=== PATIENT | female | born 1965 | race Caucasian/White ===

== ENCOUNTER 2019-06-18 17:09 | Emergency (ER) | payer SELFPAY ==
[~2019-06-18] VITALS: Ht 160 cm; Wt 60.7 kg
[2019-06-18] MEDS ORDERED: NS IV 1000 ML 1,000 ML IV SCH (17:19)
--- NOTE | 2019-06-18 17:24 | ED GU-Female ---
General Stated Complaint: BLOOD IN URINE Source: patient Exam Limitations: no limitations (PARMJIT LARA) History of Present Illness Date Seen by Provider: Jun 18, 2019 Time Seen by Provider: 17:10 Initial Comments Patient presents to ER by private conveyance with her spouse and chief complaint that about 3 hours ago she started experiencing hematuria, gross with a few clots in it. No pain dysuria. She does have pressure and the need to urinate. No back pain. A few weeks ago she was diagnosed at the urgent care and [place] with a kidney stone and they did not do any imaging since her pain went away she feared that she had passed it. She's having no pain or fevers nausea or vomiting today. She had a D&C years ago but no other abdominal surgeries. Does not have any medical problems or taking any medicines routinely. (PARMJIT LARA) Allergies and Home Medications Allergies Coded Allergies: No Known Drug Allergies (Unverified , 06/18/19) Home Medications Cefuroxime Axetil 500 Mg Tablet, 500 MG PO BID Prescribed by: NATASHA BADILLO on 06/18/191858 Phenazopyridine HCl 200 Mg Tablet, 1 TAB PO TID Prescribed by: NATASHA BADILLO on 06/18/191858 Patient Home Medication List Home Medication List Reviewed: Yes (PARMJIT LARA) Review of Systems Review of Systems Constitutional: No chills, No fever, No malaise EENTM: No ear discharge, No ear pain Respiratory: No cough, No short of breath Cardiovascular: No chest pain, No edema Gastrointestinal: No abdominal pain, No constipation Genitourinary: see HPI; denies burning, denies discharge, denies dysuria, denies frequency, denies flank pain; hematuria; denies incontinence, denies pain : No Musculoskeletal: No back pain, No joint pain (PARMJIT LARA) Past Bpybnsq-Blajra-Trtacl Hx Patient Social History Alcohol Use: Occasionally Uses Recreational Drug Use: No Smoking Status: Current Everyday Smoker Type Used: Cigarettes (1 ppd) Recent Foreign Travel: No Contact w/Someone Who Travel: No (PARMJIT LARA) Physical Exam Vital Signs Vital Signs - First Documented 06/18/19 17:12 Temp 37.2 Pulse 61 Resp 18 B/P (MAP) 101/57 (72) O2 Delivery Room Air (BADILLO,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 oz. kg; BMI Method: General Appearance: WD/WN, no apparent distress HEENT: PERRL/EOMI, pharynx normal Cardiovascular: normal peripheral pulses, regular rate, rhythm Respiratory: no respiratory distress, no accessory muscle use Gastrointestinal: non tender, soft Back: normal inspection, no CVA tenderness Neurologic/Psychiatric: alert, normal mood/affect, oriented x 3 Skin: normal color, warm/dry (PARMJIT LARA) Progress/Results/Core Measures Suspected Sepsis SIRS Temperature: Pulse: Respiratory Rate: Blood Pressure / Mean: (PARMJIT LARA) Results/Orders Lab Results Laboratory Tests Test 06/18/19 17:24 06/18/19 17:31 Range/Units Urine Color RED H Urine Clarity BLOODY H Urine pH 5 5-9 Urine Specific [place] 1.020 1.016-1.022 Urine Protein 4+ NEGATIVE Urine Glucose (UA) NEGATIVE NEGATIVE Urine Ketones 1+ H NEGATIVE Urine Nitrite NEGATIVE NEGATIVE Urine Bilirubin NEGATIVE NEGATIVE Urine Urobilinogen NORMAL NORMAL MG/DL Urine Leukocyte Esterase 3+ H NEGATIVE Urine RBC (Auto) 5+ H NEGATIVE Urine RBC TNTC H /HPF Urine WBC >100 H /HPF Urine Squamous Epithelial Cells 10-25 H /HPF Urine Crystals NONE /LPF Urine Bacteria MODERATE H /HPF Urine Casts NONE /LPF Urine Mucus NEGATIVE /LPF Urine Culture Indicated YES White Blood Count 16.6 H 4.3-11.0 10^3/uL Red Blood Count 4.43 4.35-5.85 10^6/uL Hemoglobin 14.3 11.5-16.0 G/DL Hematocrit 42 35-52 % Mean Corpuscular Volume 95 80-99 FL Mean Corpuscular Hemoglobin 32 25-34 PG Mean Corpuscular Hemoglobin Concent 34 32-36 G/DL Red Cell Distribution Width 13.5 10.0-14.5 % Platelet Count 281 130-400 10^3/uL Mean Platelet Volume 9.8 7.4-10.4 FL Neutrophils (%) (Auto) 81 H 42-75 % Lymphocytes (%) (Auto) 12 12-44 % Monocytes (%) (Auto) 7 0-12 % Eosinophils (%) (Auto) 0 0-10 % Basophils (%) (Auto) 0 0-10 % Neutrophils # (Auto) 13.4 H 1.8-7.8 X 10^3 Lymphocytes # (Auto) 2.0 1.0-4.0 X 10^3 Monocytes # (Auto) 1.2 H 0.0-1.0 X 10^3 Eosinophils # (Auto) 0.0 0.0-0.3 10^3/uL Basophils # (Auto) 0.0 0.0-0.1 10^3/uL Neutrophils % (Manual) 77 % Lymphocytes % (Manual) 12 % Monocytes % (Manual) 11 % Toxic Granulation 1+ Dohle Bodies MODERATE Blood Morphology Comment NORMAL Sodium Level 137 135-145 MMOL/L Potassium Level 4.0 3.6-5.0 MMOL/L Chloride Level 107 98-107 MMOL/L Carbon Dioxide Level 19 L 21-32 MMOL/L Anion Gap 11 5-14 MMOL/L Blood Urea Nitrogen 9 7-18 MG/DL Creatinine 0.81 0.60-1.30 MG/DL Estimat Glomerular Filtration Rate > 60 BUN/Creatinine Ratio 11 Glucose Level 85 70-105 MG/DL Calcium Level 9.2 8.5-10.1 MG/DL Corrected Calcium 8.5-10.1 MG/DL Total Bilirubin 0.6 0.1-1.0 MG/DL Aspartate Amino Transf (AST/SGOT) 14 5-34 U/L Alanine Aminotransferase (ALT/SGPT) 11 0-55 U/L Alkaline Phosphatase 64 40-136 U/L Total Protein 7.4 6.4-8.2 GM/DL Albumin 4.7 H 3.2-4.5 GM/DL (NATASHA BADILLO APRN) My Orders Orders - NATASHA BADILLO APRN Ceftriaxone For Iv Use (Rocephin For I (06/18/19 18:00) Phenazopyridine Tablet (Pyridium Tablet) (06/18/19 19:00) (NATASHA BADILLO APRN) Medications Given in ED Current Medications Medications Dose Ordered Sig/Quita Route Start Time Stop Time Status Last Admin Dose Admin Ceftriaxone Sodium 1000 mg/ Sterile Water 10 ml @ 200 mls/hr ONCE ONCE IV 06/18/19 18:00 06/18/19 18:02 DC 06/18/19 18:28 200 MLS/HR Iohexol 100 ml ONCE ONCE IV 06/18/19 18:15 06/18/19 18:18 DC 06/18/19 18:17 74 ML Sodium Chloride 100 ml ONCE ONCE IV 06/18/19 18:15 06/18/19 18:18 DC 06/18/19 18:17 80 ML (NATASHA BDAILLO APRN) Vital Signs/I&O 06/18/19 17:12 Temp 37.2 Pulse 61 Resp 18 B/P (MAP) 101/57 (72) O2 Delivery Room Air (NATASHA BADILLO APRN) Vital Signs/I&O Capillary Refill : (PARMJIT LARA) Progress Note : Time: 17:23 Progress Note Basic labs to check kidney function, anemia, blood cells as well as urinalysis. Plan CT with and without IV contrast to assess for kidney stones and last effects/tumors etc. (PARMJIT LARA) Diagnostic Imaging Diagonstic Imaging: Xray Plain Films/CT/US/NM/MRI: abdomen, pelvis Reviewed: Reviewed by Me (PARMJIT LARA) Departure Communication (Admissions) 1850-discussed the CT findings and laboratory findings with patient. She reports that she had a sudden onset of urinary frequency feeling as though she needed to urinate "every 2 seconds" beginning about 3 hours ago and she had grossly bloody urine. No history of this. We will treat this as a hemorrhagic cystitis given the significant pyuria and sudden onset with frequency. (NATASHA BADILLO APRN) Impression Primary Impression: Acute hemorrhagic cystitis Additional Impression: Urinary tract infection Qualified Codes: N30.01 - Acute cystitis with hematuria Disposition: HOME, SELF-CARE Condition: Stable Departure-Patient Inst. Decision time for Depature: 18:49 (NATASHA BADILLO APRN) Patient Instructions: Urinary Tract Infection, Adult (DC) Add. Discharge Instructions: 1. Pyridium as directed, this will turn urine orange so do not look that alarmed U. It well however also anesthetized the bladder so that you do not feel the urge to urinate as frequently as you are currently. Drink lots of fluids to help dilute urine. As the infection subsides the bleeding will improve. Follow-up with your primary care provider. Return to ER for any fevers nausea or worsening symptoms. Scripts Phenazopyridine HCl (Pyridium) 200 Mg Tablet 1 TAB PO TID, #6 TAB Prov: NATASHA BADILLO APRN 06/18/19 Cefuroxime Axetil (Cefuroxime) 500 Mg Tablet 500 MG PO BID, #14 TAB Prov: NATASHA BADILLO APRN 06/18/19 PARMJIT LARA Jun 18, 2019 17:24 NATASHA BADILLO APRN Jun 18, 2019 18:49
[2019-06-18 17:30] LABS: BILIRUBIN,URINE NEGATIVE (NEGATIVE); GLUCOSE, URINE (UA) NEGATIVE (NEGATIVE); KETONES,URINE 1+ (NEGATIVE); LEUKOCYTE ESTERASE ,URINE 3+ (NEGATIVE); NITRITE,URINE NEGATIVE (NEGATIVE); PH,URINE 5 (5-9); PROTEIN,URINE 4+ (NEGATIVE); UROBILINOGEN,URINE NORMAL (NORMAL)
[2019-06-18 17:40] LABS: BASOPHILS % (AUTO) 0 % (0-10); EOSINOPHILS % (AUTO) 0 % (0-10); HEMATOCRIT 42 % (35-52); HEMOGLOBIN 14.3 G/DL (11.5-16.0); LYMPHOCYTES % (AUTO) 12 % (12-44); MEAN CORPUSCULAR HEMOGLOBIN 32 PG (25-34); MEAN CORPUSCULAR HGB CONC 34 G/DL (32-36); MEAN CORPUSCULAR VOLUME 95 FL (80-99); MEAN PLATELET VOLUME 9.8 FL (7.4-10.4); MONOCYTES # (AUTO) 1.2 X 10^3 (0.0-1.0); MONOCYTES % (AUTO) 7 % (0-12); NEUTROPHILS # (AUTO) 13.4 X 10^3 (1.8-7.8); NEUTROPHILS % (AUTO) 81 % (42-75); PLATELET COUNT 281 10^3/uL (130-400); RED CELL DISTRIBUTION WIDTH 13.5 % (10.0-14.5); WHITE BLOOD COUNT 16.6 10^3/uL (4.3-11.0)
[2019-06-18 17:47] LABS: BACTERIA,URINE MODERATE /HPF; CLARITY,URINE BLOODY; COLOR,URINE RED; RBC,URINE TNTC /HPF; WBC,URINE >100 /HPF
[2019-06-18 17:57] LABS: ALANINE AMINOTRANSFERASE 11 U/L (0-55); ALBUMIN 4.7 GM/DL (3.2-4.5); ALKALINE PHOSPHATASE 64 U/L (40-136); BILIRUBIN,TOTAL 0.6 MG/DL (0.1-1.0); BUN/CREATININE RATIO 11; CALCIUM 9.2 MG/DL (8.5-10.1); CARBON DIOXIDE 19 MMOL/L (21-32); CHLORIDE 107 MMOL/L (98-107); CREATININE SERUM 0.81 MG/DL (0.60-1.30); GFR ESTIMATED > 60; GLUCOSE 85 MG/DL (70-105); SODIUM 137 MMOL/L (135-145); TOTAL PROTEIN 7.4 GM/DL (6.4-8.2)
[2019-06-18] MEDS ORDERED: cefTRIAXone FOR IV USE 1,000 MG in WATER (STERILE) FOR INJECTION 10 ML IV ONE (18:00)
[2019-06-18 18:05] LABS: LYMPHOCYTES % (MANUAL) 12 %; MONOCYTES % (MANUAL) 11 %; NEUTROPHILS % (MANUAL) 77 %; RBC MORPH NORMAL
[2019-06-18 18:06] LABS: TOXIC GRANULATION/VACUOLAZATIO 1+
[2019-06-18] MEDS ORDERED: NS 100 ML (IVPB) BAG IV ONE (18:15)
[2019-06-18] MEDS ORDERED: CATHETER FLUSH 10 ML SYR IV PRN (18:15)
[2019-06-18] MEDS ORDERED: IOHEXOL 350 MG/ML 100 ML (OMNIPAQUE 350) VIAL IV ONE (18:15)
[2019-06-18] MEDS ORDERED: HOLD METFORMIN - RECEIVED CONTRAST 20 ML VIAL IV SCH (18:15)
--- NOTE | 2019-06-18 18:38 | Diagnostic Imaging Report ---
INDICATION: Hematuria and frequent urination. CT abdomen and pelvis obtained with pre and post IV contrast images. There is no previous study for comparison. The visualized portions of the lung bases are clear. There are no pleural fluid collections. There is no free intraperitoneal air. The liver has a few small cysts, the largest in the right lobe laterally measuring about 3.2 cm. There is no solid liver lesion. The gallbladder appear normal. The spleen, adrenals, and pancreas appear normal. Kidneys bilaterally show no radiopaque calculi or hydronephrosis or overt mass lesion. There is no retroperitoneal mass or adenopathy. There is no ascites or abnormal fluid collection. Imaging of the pelvis shows an enlarged uterus with inhomogeneity which may represent fibroid lesions. This can be followed sonographically as clinically warranted. IMPRESSION: There are benign-appearing cysts in the liver. There is no renal stone or hydronephrosis or renal mass. Urinary bladder is grossly unremarkable. There is enlargement of the uterus with inhomogeneity which may represent underlying fibroid disease. Consider elective sonographic follow-up as clinically warranted. Dictated by: Dictated on workstation # [id number]
[2019-06-18] MEDS ORDERED: CEFU500T63 PO (18:59)
[2019-06-18] MEDS ORDERED: PHEN-640 PO (18:59)
[2019-06-18] MEDS ORDERED: PHENAZOPYRIDINE 100 MG (PYRIDIUM) TABLET PO ONE (19:00)
[2019-06-18 19:10] VITALS: BP 101/62
== END 2019-06-18 19:13 | disposition home or self-care (01) ==
LOC: ER 17:11
DX: N30.01 Acute cystitis with hematuria (principal); F17.210 Nicotine dependence, cigarettes, uncomplicated
CPT/HCPCS: 36415; 74178; 80053; 81000; 85007; 85027; 87077; 87088; 87186; 96365

== ENCOUNTER → 2021-09-20 | Outpatient (REF) ==
[~2021-09-20] MED LIST: CEFU500T63 PO; PHEN-640 PO
--- NOTE | 2021-09-20 11:55 | Diagnostic Imaging Report ---
EXAM: LUMBAR SPINE - 2-3 VIEWS. INDICATION: Back pain. COMPARISON: None. FINDINGS: Mild right apex lumbar curvature. Vertebral body heights are preserved. No fracture is identified. No substantial spondylotic change. Visualized pelvis is intact. IMPRESSION: 1. Mild right apex lumbar curvature. 2. No acute radiographic findings in the lumbar spine. Dictated by: Dictated on workstation # [id number]
--- NOTE | 2021-09-20 11:58 | Diagnostic Imaging Report ---
INDICATION: Neck pain. COMPARISON: No priors. FINDINGS: Frontal and lateral cervical radiographs performed. There is disc space narrowing, endplate sclerosis, and osteophytes, greatest at C4-C5, C5-C6, and C6-C7 levels as a chronic finding. There is mid to lower cervical facet arthrosis, chronic. Vertebral statures are normal. There is no listhesis. Prevertebral space showed no abnormal thickening. IMPRESSION: Mid to lower cervical spondylosis and facet arthrosis without fracture. Dictated by: Dictated on workstation # [id number]
--- NOTE | 2021-09-20 12:04 | Diagnostic Imaging Report ---
INDICATION: Injury, pain. FINDINGS: Thoracic vertebral statures are within normal limits. There is very minimal leftward convexity scoliotic curvature of the lower lumbar spine which may be positional. No listhesis. No acute or suspect endplate irregularity. IMPRESSION: Slight leftward convexity curvature to lower thoracic spine may be very slight scoliosis or on a positional basis. No fracture or acute appearing abnormality, however. Dictated by: Dictated on workstation # [id number]
== END ==
LOC: OCC 10:42
PROVIDERS: ATTEND Family Medicine
DX: M54.9 Dorsalgia, unspecified (principal)
CPT/HCPCS: 72040; 72070; 72100

== ENCOUNTER → 2021-10-20 | Outpatient (REF) ==
--- NOTE | 2021-10-20 13:48 | Diagnostic Imaging Report ---
EXAMINATION: Right clavicle radiographs, 2 views. COMPARISON: None. HISTORY: 56-year-old female, right clavicle pain. FINDINGS: The acromioclavicular joint is normally aligned. There are no acromioclavicular degenerative changes. There is no identified acute fracture. IMPRESSION: Unremarkable radiographs of the right clavicle. Dictated by: Dictated on workstation # [id number]
== END ==
LOC: OCC 12:54
PROVIDERS: ATTEND Nurse Practitioner Family
DX: R52 Pain, unspecified (principal)
CPT/HCPCS: 73000

== ENCOUNTER → 2021-10-20 | Outpatient (CLI) | payer BC ==
--- NOTE | 2021-10-20 12:59 | Diagnostic Imaging Report ---
PROCEDURE: Pelvic comp/transvaginal sonogram. TECHNIQUE: Complete transabdominal and transvaginal pelvic ultrasound was performed. In addition, limited pelvic Doppler was performed. INDICATION: Enlarged uterus. FINDINGS: Uterus is anteverted measuring 7.5 x 5.3 x 4.5 cm. Numerous uterine fibroids are present, obscuring the endometrium. The fibroid on the left posteriorly measures 2.6 x 2.7 x 2.0 cm. Midline posterior fibroid is approximately 2.8 x 2.3 x 1.6 cm. Anterior fibroid is 3.3 x 3.2 x 2.4 cm. Ovaries could not be visualized. No adnexal mass or free fluid is detected. IMPRESSION: 1. Fibroid uterus, obscuring the endometrial canal. 2. Nonvisualized ovaries. Dictated by: Dictated on workstation # [id number]
--- NOTE | 2021-10-20 14:13 | Diagnostic Imaging Report ---
INDICATION: Routine screening. No prior mammograms are available for comparison. 2-D and 3-D bilateral screening mammography was performed with CAD. Both breasts are heterogeneously dense, limiting the sensitivity of mammography. Occasional benign calcifications are noted. No mass or malignant appearing microcalcifications are seen. Axillae are unremarkable. IMPRESSION: No mammographic features suspicious for malignancy are identified. BI-RADS Category 2 ACR BI-RADS Category 2: Benign findings. Result letter will be mailed to the patient. Note: At least 10% of breast cancer is not imaged by mammography. Dictated by: Dictated on workstation # [id number]
== END ==
LOC: RAD 10:45
PROVIDERS: ATTEND Obstetrics & Gynecology
DX: Z12.31 Encounter for screening mammogram for malignant neoplasm of breast (principal); D25.9 Leiomyoma of uterus, unspecified
CPT/HCPCS: 76830; 76856; 77063; 77067

== ENCOUNTER → 2021-12-08 | Outpatient (REF) ==
--- NOTE | 2021-12-08 11:58 | Diagnostic Imaging Report ---
Indication: Screening for MRI. Time of Exam: 11:39 AM 2 views of skull were obtained. No definite radiopaque orbital foreign bodies are seen. No foreign bodies within the internal or middle ears is seen. Impression: No foreign body is identified to preclude performance of an MRI. Dictated by: Dictated on workstation # [id number]
--- NOTE | 2021-12-08 12:48 | Diagnostic Imaging Report ---
EXAMINATION: Right shoulder MRI, 12/08/2021. TECHNIQUE: Multiplanar, multisequence non contrast-enhanced MRI of the right upper extremity was accomplished. INDICATION: Right shoulder injury from work in September 2021. FINDINGS: The subscapularis tendon is intact. Long head of biceps tendon is intact and lies within the bicipital groove. The supraspinatus and infraspinatus tendons appear intact. There is minimal overlying fluid in the subdeltoid-subacromial bursa likely due to mild bursitis. There is minimal narrowing and edema at the acromioclavicular joint space. Remaining joint spaces and osseous structures are unremarkable. Labrum is poorly characterized without contrast. No gross abnormality is appreciated. Muscle volume is preserved. Visualized axilla is unremarkable. IMPRESSION: 1. Rotator cuff intact. 2. Findings of mild bursitis in the subdeltoid-subacromial bursa. Dictated by: Dictated on workstation # [id number]
--- NOTE | 2021-12-08 13:04 | Diagnostic Imaging Report ---
EXAMINATION: CT chest without contrast. TECHNIQUE: Multiple contiguous axial images were obtained through the chest without the use of intravenous contrast. All CT scans use one or more of the following dose optimizing techniques: automated exposure control, MA and/or KvP adjustment based on patient size and exam type or iterative reconstruction. HISTORY: Supraclavicular palpable abnormalities COMPARISON: None available. FINDINGS: Thyroid: The thyroid is normal. Mediastinum: Heart size is normal without significant pericardial effusion. The aorta is normal in caliber. No suspicious lymphadenopathy. Lungs and airways: The lungs are clear without consolidation, pleural effusion, or pneumothorax. No pulmonary lesion. The airways are normal. Upper abdomen: Hepatic cysts are present. Musculoskeletal: No suspicious osseous lesion or compression fracture. There is no focal mass, lymph node, or fluid collection within the palpable region of concern along the clavicle. 1 palpable abnormality corresponds to the right sternocleidomastoid muscle. The other marker does not correspond to any focal lesion. IMPRESSION: 1. No focal abnormality within the right supra clavicular soft tissues to correspond the palpable abnormalities. One marker likely corresponds to the right sternoclavicular muscle. 2. No other acute abnormality in the chest. Dictated by: Dictated on workstation # [id number]
== END | disposition home or self-care (01) ==
LOC: OCC 11:30
PROVIDERS: ATTEND Nurse Practitioner Family
DX: M25.511 Pain in right shoulder (principal)
CPT/HCPCS: 70250; 71250; 73221

== ENCOUNTER 2023-01-17 06:47 | Outpatient (CLI) | payer BC ==
[~2023-01-17] VITALS: Ht 160 cm; Wt 67.5 kg
[2023-01-17] MEDS ORDERED: LACTATED RINGERS 1,000 ML IV STA (08:28)
[2023-01-17] MEDS ORDERED: HURRICAINE EXT TUBE (BENZOCAINE) XX PRN (08:30)
== END 2023-01-17 08:32 | disposition home or self-care (01) ==
LOC: PREOP 06:47
PROVIDERS: ATTEND Surgery
DX: Z01.818 Encounter for other preprocedural examination (principal)

== ENCOUNTER 2023-01-22 07:05 | Day surgery (SDC) | payer BC ==
[~2023-01-22] VITALS: Ht 160 cm; Wt 67.5 kg
[2023-01-22] MEDS ORDERED: LACTATED RINGERS 1,000 ML IV STA (07:20)
[2023-01-22] MEDS ORDERED: HURRICAINE EXT TUBE (BENZOCAINE) XX PRN (07:30)
[2023-01-22 08:13] VITALS: BP 106/63
[2023-01-22] MEDS ORDERED: PROPOFOL INJECTION 50 ML IV ONE (08:16)
--- NOTE | 2023-01-22 08:37 | Progress Note-Pre Operative ---
Pre-Operative Progress Note Date of Available H&P: Jan 04, 2023 Date H&P Reviewed: January 22, 2023 Time H&P Reviewed: 08:33 History & Physical: H&P Reviewed, Patient Examed, No changes noted Pre-Operative Diagnosis: GERD, Screening colon, hx of polyps RIO VALDOVINOS DO January 22, 2023 08:37
[2023-01-22 09:13] VITALS: BP 107/56
--- NOTE | 2023-01-22 09:13 | Progress Note-Post Operative ---
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 She was administered IV sedation by the CUT AND PRINT MACHINE OPERATOR who then monitored vitals the entire time, heart rate, blood pressure and pulse ox and the scope was inserted down the mouth through the esophagus into the stomach. On the way down, noted some mild esophagitis, took a picture, pushed into the stomach and noted what looked like little drops of blood. Pushed past the antrum into the duodenum; duodenum looked good. Pulled back and did a biopsy of antrum, then retroflexed the scope, saw a Grade III (possibly IV) AFS hiatal hernia, took a picture of this and then pulled the scope into the GE junction, took another picture of the hiatal hernia and then did a biopsy of the GE junction. Pushed the scope back into the stomach, suctioned all the air out of the stomach. At this point pulled the scope up the esophagus and out the mouth. Switched camera, switched gloves, went down below, started the colonoscopy. Pushed all the way to about 150 cm and pushed into the cecum, took a picture of appendiceal orifice and noted the ileocecal valve. Then slowly withdrew the scope insufflating to look circumferentially at the martinez starting in the cecum, up the ascending colon to the hepatic flexure, then down the transverse colon to the splenic flexure, into the descending colon down into the sigmoid and then into the rectal vault; where I saw a small polyp I elected to remove with cold biopsy. Finally, retroflexed the scope and took picture of the internal hemorrhoids. Pt also had some Melanosis coli throughout the colon. The patient tolerated the procedure and she recovered in the endoscopy suite. Recommended for repeat colonoscopy in 10 years Anesthesia Type IV sedation by Anesthesia Estimated Blood Loss Estimated blood loss (mL): scant Specimens/Packing Specimens Removed antral bx Body of stomach bx GE jxn bx Rectal polyp RIO VALDOVINOS DO January 22, 2023 09:12
--- NOTE | 2023-01-22 09:14 | Endoscopy Discharge Instruct ---
Endo Procedure/Findings Findings 1.: Gastritis 2.: Hiatal Hernia 3.: Polyp 4.: Internal Hemorrhoids Discharge Instructions - Activity: You might feel a little sleepy until tomorrow. This is due to the medicine you received to relax you. Until tomorrow, you should: NOT drive a car, operate machinery or power tools. NOT drink any alcoholic beverages. NOT make any important decisions or sign importortant papers. Do not return to work until tomorrow, unless otherwise instructed. Resume previous activities tomorrow. Diet: Start by taking liquids. If you tolerate liquids, advance to solid food. 1.: EGD in 3 years 2.: Colonscopy in 10 years Notify Physician - If you experience excessive bleeding, unusual abdominal pain, fever, or chest pain, contact your doctor immediately. Follow-Up: Other Follow up in my office in one week RIO VALDOVINOS DO January 22, 2023 09:14
[2023-01-22 09:15] VITALS: BP 110/58
[2023-01-22 09:44] VITALS: BP 107/56
--- NOTE | 2023-01-22 10:29 | Anesthesia-General Post-Op ---
MAC Patient Condition Mental Status/LOC: Same as Preop Cardiovascular: Satisfactory Nausea/Vomiting: Absent Respiratory: Satisfactory Pain: Controlled Complications: Absent Post Op Complications Complications None Follow Up Care/Instructions Patient Instructions None needed. Anesthesiology Discharge Order Discharge Order Patient was doing well after the procedure with no complaints, stable vital signs, no apparent adverse anesthesia problems. No complications reported per nursing. YAIMA YU DO January 22, 2023 10:29
== END 2023-01-22 09:54 | disposition home or self-care (01) ==
LOC: ENDO 07:05
PROVIDERS: ATTEND Surgery
DX: Z12.11 Encounter for screening for malignant neoplasm of colon (principal); K29.71 Gastritis, unspecified, with bleeding; K62.1 Rectal polyp; K44.9 Diaphragmatic hernia without obstruction or gangrene; K63.89 Other specified diseases of intestine; K64.8 Other hemorrhoids; K29.70 Gastritis, unspecified, without bleeding; K21.00 Gastro-esophageal reflux disease with esophagitis, without bleeding; F17.210 Nicotine dependence, cigarettes, uncomplicated